=== PATIENT | female | born 1975 | race Caucasian/White ===

== ENCOUNTER 2017-06-10 06:44 | Inpatient (IN) | payer OTHER ==
[2017-06-10] VITALS (15 sets, daily range): BP systolic 124–146; BP diastolic 51–88
[~2017-06-10] VITALS: Ht 162.6 cm; Wt 59.9 kg
[2017-06-10] MEDS ORDERED: SODIUM CHLORIDE 0.9% 1000ML BAG (SEPSIS BOLUS) IV ONE (07:00)
[2017-06-10] MEDS ORDERED: SODIUM CHLORIDE 0.9% 1,000 ML IV ONE ×2 (07:27→07:47)
[2017-06-10] MEDS ORDERED: INSULIN REGULAR (DRIP) 100 UNITS in SODIUM CHLORIDE 0.9% 100 ML IV ONE ×2 (07:30→08:00)
[2017-06-10 07:40] LABS: PARTIAL THROMBOPLASTIN TIME 30.3 sec (23.4-31.0); PROTHROMBIN TIME 10.4 sec (9.4-11.6)
[2017-06-10 07:45] LABS: BG BASE EXCESS -25.9 mmol/L (-2.0-2.0); BG CARBOXYHEMOGLOBIN 0.2 % (0.5-1.5); BG FRACTION INSPIRED OXYGEN 21; BG METHEMOGLOBIN 0.2 % (0.0-1.5); BG OXYHEMOGLOBIN 97.6 % (94.0-97.0); BG PCO2 11.7 mmHg (35.0-45.0); BG PH 7.026 (7.350-7.450); BG PO2 133.1 mmHg (75.0-100.0); BG SAMPLE SITE RIGHT RADIAL; BG TOTAL HEMOGLOBIN 14.4 g/dL (12.0-18.0); BG VENT MODE ROOM AIR
[2017-06-10 07:46] LABS: HCG SCREEN NEGATIVE
[2017-06-10 07:53] LABS: CHLORIDE 92 mEq/L (98-107); TROPONIN I < 0.02 ng/mL (0.00-0.04)
[2017-06-10 07:56] LABS: BETA HYDROXYBUTYRATE 9.6 mMol/L (0.0-0.3)
[2017-06-10] MEDS ORDERED: POTASSIUM CHLORIDE 20MEQ TABLET SR PO ONE (08:00)
[2017-06-10] MEDS ORDERED: KCL 20MEQ/100ML PREMIX 100 ML IV ONE (08:00)
[2017-06-10 08:06] LABS: PHOSPHORUS 5.5 mg/dL (2.5-4.9)
[2017-06-10] MEDS ORDERED: SODIUM CHLORIDE 0.9% 1,000 ML IV SCH ×2 (08:15→16:15)
[2017-06-10 08:29] LABS: HEMATOCRIT. 37.5 % (36.0-48.0); HEMOGLOBIN. 12.2 g/dL (12.0-16.0); MEAN CORPUSCULAR HEMOGLOBIN 27.6 pg (28.0-32.0); MEAN CORPUSCULAR VOLUME 84.8 fL (81.0-99.0); MEAN PLATELET VOLUME 8.5 fl (7.4-10.4); PLATELET 569 x1000/uL (130-400); RED BLOOD CELL COUNT 4.42 mill/uL (4.2-5.4); RED CELL DISTRIBUTION WIDTH 15.7 % (11.6-14.6)
[2017-06-10] MEDS ORDERED: POTASSIUM CHLORIDE 20MEQ/PACKET PO ONE (08:30)
[2017-06-10 08:40] LABS: AMYLASE 459 IU/L (25-115)
[2017-06-10 08:43] LABS: CLARITY URINE CLOUDY (CLEAR); COLOR URINE YELLOW (YELLOW); KETONES URINE 4+ (NEGATIVE); LEUKOCYTE ESTERASE URINE NEGATIVE (NEGATIVE); NITRITE URINE NEGATIVE (NEGATIVE); OCCULT BLOOD URINE 2+ (NEGATIVE); PROTEIN URINE 2+ (NEGATIVE); SPECIFIC GRAVITY URINE 1.029 (1.005-1.030); UROBILINOGEN URINE 0.2 E.U./dL (0.2-1.0)
[2017-06-10] MEDS ORDERED: MIDAZOLAM HCL 2 MG/2 ML VIAL IV ONE (09:15)
[2017-06-10 09:37] LABS: PLATELET ESTIMATE SLIGHTLY INCREASED
[2017-06-10 09:43] LABS: *AMPHETAMINES SCREEN URINE NEGATIVE (NEGATIVE); *BARBITURATES SCREEN URINE NEGATIVE (NEGATIVE); *BENZODIAZEPINES SCREEN URINE NEGATIVE (NEGATIVE); *COCAINE SCREEN URINE NEGATIVE (NEGATIVE); CANNABINOID URINE SCREEN NEGATIVE (NEGATIVE); METHADONE URINE SCREEN NEGATIVE (NEGATIVE); OPIATES URINE SCREEN NEGATIVE (NEGATIVE); PHENCYCLIDINE URINE SCREEN NEGATIVE (NEGATIVE)
[2017-06-10] MEDS ORDERED: CEFTRIAXONE 1 G PREMIX 50 ML IV ONE (10:00)
[2017-06-10] MEDS ORDERED: PIPERACILLIN/TAZ 3.375G PREMIX 50 ML IV ONE (10:15)
[2017-06-10] MEDS ORDERED: DEXTROSE 50% WATER 50ML SYRINGE IV PRN ×4 (11:15→11:30)
[2017-06-10] MEDS ORDERED: BLOOD SUGAR DIAGNOSTIC STRIP TEST SCH (11:15)
[2017-06-10] MEDS ORDERED: INSULIN REGULAR (DRIP) 100 UNITS in SODIUM CHLORIDE 0.9% 99 ML IV SCH (11:23)
[2017-06-10] MEDS: BLOOD SUGAR DIAGNOSTIC STRIP TEST SCH ×12 (11:30→22:30)
[2017-06-10] MEDS ORDERED: VANCOMYCIN 1250MG in DEXTROSE 5% WATER 250ML IV SCH (11:30)
[2017-06-10] MEDS: DEXT 5%/0.45% NACL 1000ML 1,000 ML IV SCH ×4 (11:47→18:06)
[2017-06-10] MEDS: PIPERACILLIN/TAZ 3.375G PREMIX 50 ML IV SCH ×2 (12:45→20:09)
[2017-06-10 13:16] LABS: CHLORIDE 107 mEq/L (98-107)
[2017-06-10 13:17] LABS: AMMONIA 43 uMol/L (<32)
[2017-06-10] MEDS ORDERED: GLIP5TAB12 PO (15:26)
[2017-06-10] MEDS ORDERED: FAMO20TA8 PO (15:26)
[2017-06-10] MEDS ORDERED: LANTUSUD SUBCUT (15:26)
[2017-06-10] MEDS ORDERED: KCL 20MEQ/100ML PREMIX 100 ML IV NR (16:00)
[2017-06-10 17:29] LABS: CLARITY URINE CLEAR (CLEAR); COLOR URINE YELLOW (YELLOW); KETONES URINE 3+ (NEGATIVE); LEUKOCYTE ESTERASE URINE NEGATIVE (NEGATIVE); NITRITE URINE NEGATIVE (NEGATIVE); OCCULT BLOOD URINE 1+ (NEGATIVE); PH URINE 5.5 (4.5-8.0); PROTEIN URINE 1+ (NEGATIVE); UROBILINOGEN URINE 0.2 E.U./dL (0.2-1.0)
[2017-06-10 18:25] LABS: CHLORIDE 107 mEq/L (98-107)
[2017-06-10 18:42] LABS: PHOSPHORUS 0.7 mg/dL (2.5-4.9)
[2017-06-10] MEDS ORDERED: POTASSIUM CHLORIDE 20MEQ TABLET SR PO SCH (20:00)
[2017-06-10] MEDS ORDERED: VANCOMYCIN 750 MG PREMIX 150 ML IV SCH (20:00)
[2017-06-10] MEDS: SODIUM CHLORIDE 0.9% 1,000 ML IV SCH (20:09)
[2017-06-10 20:26] LABS: BG BASE EXCESS -10.1 mmol/L (-2.0-2.0); BG FRACTION INSPIRED OXYGEN 21; BG HCO3 ACT 12.5 mmol/L (22.0-26.0); BG METHEMOGLOBIN 0.3 % (0.0-1.5); BG OXYHEMOGLOBIN 97.7 % (94.0-97.0); BG PCO2 20.5 mmHg (35.0-45.0); BG PH 7.403 (7.350-7.450); BG SAMPLE SITE RIGHT RADIAL; BG TOTAL HEMOGLOBIN 12.3 g/dL (12.0-18.0); BG VENT MODE ROOM AIR
[2017-06-10] MEDS ORDERED: POTASSIUM PHOS,M-BASIC-D-BASIC 20 MMOL in DEXT 5% WATER 243.3333 ML IV SCH (21:00)
[2017-06-10] MEDS ORDERED: VANCOMYCIN 1 G PREMIX 200 ML IV SCH (23:00)
[2017-06-10] MEDS: VANCOMYCIN 1250MG in DEXTROSE 5% WATER 250ML IV SCH (23:45)
[2017-06-11] VITALS (24 sets, daily range): BP systolic 107–143; BP diastolic 52–104
[2017-06-11] MEDS: BLOOD SUGAR DIAGNOSTIC STRIP TEST SCH ×11 (00:27→21:03)
[2017-06-11] MEDS: PIPERACILLIN/TAZ 3.375G PREMIX 50 ML IV SCH ×3 (04:47→21:25)
[2017-06-11] MEDS: SODIUM CHLORIDE 0.9% 1,000 ML IV SCH ×2 (04:48→08:43)
[2017-06-11 05:51] LABS: BASOPHILS % 0.2 % (0.0-2.0); EOSINOPHILS % 0.2 % (0.0-5.0); HEMATOCRIT. 33.2 % (36.0-48.0); HEMOGLOBIN. 11.4 g/dL (12.0-16.0); LYMPHOCYTES % 7.5 % (20.0-50.0); MEAN CORPUSCULAR HEMOGLOBIN 27.4 pg (28.0-32.0); MEAN CORPUSCULAR VOLUME 80.1 fL (81.0-99.0); MEAN PLATELET VOLUME 7.9 fl (7.4-10.4); MONOCYTES % 7.4 % (2.0-8.0); NEUTROPHILS % 84.7 % (40.0-76.0); PLATELET 480 x1000/uL (130-400); RED BLOOD CELL COUNT 4.14 mill/uL (4.2-5.4); RED CELL DISTRIBUTION WIDTH 14.9 % (11.6-14.6)
[2017-06-11 06:10] LABS: CHLORIDE 107 mEq/L (98-107)
[2017-06-11] MEDS: DEXT 5%/0.45% NACL 1000ML 1,000 ML IV SCH (06:43)
[2017-06-11] MEDS ORDERED: SODIUM CHLORIDE 0.9% 1,000 ML IV SCH (08:30)
[2017-06-11] MEDS ORDERED: DEXTROSE 50% WATER 50ML SYRINGE IV PRN (08:30)
[2017-06-11 08:44] LABS: PHOSPHORUS 1.6 mg/dL (2.5-4.9)
[2017-06-11] MEDS ORDERED: POTASSIUM-SODIUM PHOSPHATE POWDER PACKET PO SCH (09:00)
[2017-06-11] MEDS: POTASSIUM CHLORIDE 20MEQ TABLET SR PO SCH ×6 (09:05→18:33)
[2017-06-11] MEDS: AMLODIPINE 10MG TABLET PO SCH (09:37)
[2017-06-11] MEDS: INSULIN GLARGINE UD 100 UNITS/ML SYR SUBCUT SCH ×2 (09:38→21:27)
[2017-06-11] MEDS: INSULIN LISPRO 100 UNITS/ML SUBCUT SCH ×3 (12:47→21:26)
[2017-06-11] MEDS: VANCOMYCIN 1250MG in DEXTROSE 5% WATER 250ML IV SCH (14:05)
[2017-06-11 16:17] LABS: CHLORIDE 100 mEq/L (98-107)
[2017-06-11] MEDS ORDERED: POTASSIUM PHOS,M-BASIC-D-BASIC 20 MMOL in DEXT 5% WATER 243.3333 ML IV NR (18:30)
[2017-06-12] VITALS (24 sets, daily range): BP systolic 116–144; BP diastolic 43–93
[2017-06-12] MEDS: VANCOMYCIN 1250MG in DEXTROSE 5% WATER 250ML IV SCH ×2 (01:08→13:04)
[2017-06-12] MEDS: PIPERACILLIN/TAZ 3.375G PREMIX 50 ML IV SCH ×3 (05:22→20:42)
[2017-06-12 05:33] LABS: BASOPHILS % 0.2 % (0.0-2.0); EOSINOPHILS % 0.2 % (0.0-5.0); HEMATOCRIT. 34.1 % (36.0-48.0); HEMOGLOBIN. 11.8 g/dL (12.0-16.0); LYMPHOCYTES % 10.4 % (20.0-50.0); MEAN CORPUSCULAR HEMOGLOBIN 27.5 pg (28.0-32.0); MEAN CORPUSCULAR VOLUME 79.2 fL (81.0-99.0); MEAN PLATELET VOLUME 8.2 fl (7.4-10.4); MONOCYTES % 10.3 % (2.0-8.0); NEUTROPHILS % 78.9 % (40.0-76.0); PLATELET 526 x1000/uL (130-400); RED BLOOD CELL COUNT 4.31 mill/uL (4.2-5.4)
[2017-06-12 06:08] LABS: CHLORIDE 102 mEq/L (98-107)
[2017-06-12 06:13] LABS: PHOSPHORUS 1.6 mg/dL (2.5-4.9)
[2017-06-12] MEDS: BLOOD SUGAR DIAGNOSTIC STRIP TEST SCH ×4 (07:50→21:29)
[2017-06-12] MEDS: INSULIN LISPRO 100 UNITS/ML SUBCUT SCH ×4 (09:11→21:30)
[2017-06-12] MEDS: PANTOPRAZOLE SODIUM 40 MG/VIAL IV SCH (09:12)
[2017-06-12] MEDS: AMLODIPINE 10MG TABLET PO SCH (09:12)
[2017-06-12] MEDS: POTASSIUM CHLORIDE 20MEQ TABLET SR PO NR ×2 (09:15→10:19)
[2017-06-12] MEDS: ONDANSETRON HCL 4MG/2ML VIAL IV PRN ×2 (09:15→23:33)
[2017-06-12] MEDS ORDERED: POTASSIUM PHOS,M-BASIC-D-BASIC 20 MMOL in DEXT 5% WATER 243.3333 ML IV NR (10:30)
[2017-06-12] MEDS: INSULIN GLARGINE UD 100 UNITS/ML SYR SUBCUT SCH ×2 (10:39→22:51)
[2017-06-12 11:10] LABS: CHLORIDE 102 mEq/L (98-107); VANCOMYCIN TROUGH 21.8 ug/mL (5.0-10.0)
[2017-06-12] MEDS ORDERED: MAGNESIUM 1 G PREMIX 100 ML IV NR (11:45)
[2017-06-12] MEDS ORDERED: POTASSIUM CHLORIDE INJ 40 MEQ in SODIUM CHLORIDE 0.9% 250 ML IV NR (14:30)
[2017-06-12] MEDS ORDERED: POTASSIUM CHLORIDE INJ 40 MEQ in DEXT 5% WATER 250 ML IV ONE (15:00)
[2017-06-12] MEDS ORDERED: POTASSIUM CHLORIDE INJ 40 MEQ in DEXT 5% WATER 250 ML IV NR (18:00)
[2017-06-13] VITALS (9 sets, daily range): BP systolic 109–125; BP diastolic 62–85
[2017-06-13] MEDS: VANCOMYCIN 1250MG in DEXTROSE 5% WATER 250ML IV SCH ×2 (00:41→12:18)
[2017-06-13] MEDS: PIPERACILLIN/TAZ 3.375G PREMIX 50 ML IV SCH ×3 (03:30→21:47)
[2017-06-13] MEDS: BLOOD SUGAR DIAGNOSTIC STRIP TEST SCH ×4 (06:09→21:18)
[2017-06-13 06:59] LABS: BASOPHILS % 0.3 % (0.0-2.0); EOSINOPHILS % 0.2 % (0.0-5.0); HEMATOCRIT. 32.3 % (36.0-48.0); HEMOGLOBIN. 11.1 g/dL (12.0-16.0); LYMPHOCYTES % 7.1 % (20.0-50.0); MEAN CORPUSCULAR HEMOGLOBIN 27.7 pg (28.0-32.0); MEAN CORPUSCULAR VOLUME 80.8 fL (81.0-99.0); MEAN PLATELET VOLUME 8.1 fl (7.4-10.4); NEUTROPHILS % 81.4 % (40.0-76.0); PLATELET 482 x1000/uL (130-400); RED CELL DISTRIBUTION WIDTH 14.9 % (11.6-14.6)
[2017-06-13] MEDS: INSULIN LISPRO 100 UNITS/ML SUBCUT SCH ×4 (07:40→21:18)
[2017-06-13 07:45] LABS: PHOSPHORUS 2.5 mg/dL (2.5-4.9)
[2017-06-13] MEDS: PANTOPRAZOLE SODIUM 40 MG/VIAL IV SCH (08:06)
[2017-06-13] MEDS: AMLODIPINE 10MG TABLET PO SCH (08:06)
[2017-06-13] MEDS: POTASSIUM CHLORIDE 20MEQ TABLET SR PO SCH (09:15)
[2017-06-13] MEDS: INSULIN GLARGINE UD 100 UNITS/ML SYR SUBCUT SCH ×2 (11:28→21:18)
[2017-06-13] MEDS: ONDANSETRON HCL 4MG/2ML VIAL IV PRN (14:54)
[2017-06-13] MEDS ORDERED: KCL 20MEQ/100ML PREMIX 100 ML IV NR (20:00)
[2017-06-14] VITALS (12 sets, daily range): BP systolic 90–128; BP diastolic 53–91
[2017-06-14] MEDS ORDERED: VANCOMYCIN 1 G PREMIX 200 ML IV SCH
[2017-06-14] MEDS: PIPERACILLIN/TAZ 3.375G PREMIX 50 ML IV SCH ×3 (03:53→19:59)
[2017-06-14] MEDS: BLOOD SUGAR DIAGNOSTIC STRIP TEST SCH ×4 (06:21→20:13)
[2017-06-14] MEDS: INSULIN LISPRO 100 UNITS/ML SUBCUT SCH ×4 (08:06→20:13)
[2017-06-14] MEDS: AMLODIPINE 10MG TABLET PO SCH (08:06)
[2017-06-14] MEDS: FAMOTIDINE 20MG TABLET PO SCH (08:06)
[2017-06-14] MEDS: POTASSIUM CHLORIDE 20MEQ TABLET SR PO SCH (08:24)
[2017-06-14 10:13] LABS: BASOPHILS % 0.3 % (0.0-2.0); EOSINOPHILS % 0.2 % (0.0-5.0); HEMATOCRIT. 35.2 % (36.0-48.0); HEMOGLOBIN. 11.9 g/dL (12.0-16.0); MEAN CORPUSCULAR HEMOGLOBIN 27.6 pg (28.0-32.0); MEAN CORPUSCULAR VOLUME 81.6 fL (81.0-99.0); MEAN PLATELET VOLUME 8.1 fl (7.4-10.4); MONOCYTES % 8.1 % (2.0-8.0); NEUTROPHILS % 82.4 % (40.0-76.0); PLATELET 573 x1000/uL (130-400); RED BLOOD CELL COUNT 4.32 mill/uL (4.2-5.4); RED CELL DISTRIBUTION WIDTH 15.5 % (11.6-14.6)
[2017-06-14] MEDS: INSULIN GLARGINE UD 100 UNITS/ML SYR SUBCUT SCH ×2 (10:41→22:42)
[2017-06-14] MEDS: SODIUM CHLORIDE 0.9% 1,000 ML IV SCH ×2 (12:27→18:55)
[2017-06-14] MEDS ORDERED: POTASSIUM CHLORIDE INJ 40 MEQ in DEXT 5% WATER 500 ML IV SCH (13:00)
[2017-06-14] MEDS: ONDANSETRON HCL 4MG/2ML VIAL IV PRN (18:15)
[2017-06-15] VITALS (12 sets, daily range): BP systolic 105–129; BP diastolic 56–93
[2017-06-15] MEDS: SODIUM CHLORIDE 0.9% 1,000 ML IV SCH ×4 (01:18→21:24)
[2017-06-15] MEDS: PIPERACILLIN/TAZ 3.375G PREMIX 50 ML IV SCH ×3 (04:11→21:21)
[2017-06-15] MEDS: BLOOD SUGAR DIAGNOSTIC STRIP TEST SCH ×4 (06:59→21:23)
[2017-06-15] MEDS: INSULIN LISPRO 100 UNITS/ML SUBCUT SCH ×4 (07:00→21:00)
[2017-06-15] MEDS: FAMOTIDINE 20MG TABLET PO SCH (08:33)
[2017-06-15] MEDS: POTASSIUM CHLORIDE 20MEQ TABLET SR PO SCH (08:33)
[2017-06-15] MEDS: ONDANSETRON HCL 4MG/2ML VIAL IV PRN (08:34)
[2017-06-15] MEDS: AMLODIPINE 10MG TABLET PO SCH (08:35)
[2017-06-15] MEDS: INSULIN GLARGINE UD 100 UNITS/ML SYR SUBCUT SCH ×2 (11:07→21:27)
[2017-06-16] VITALS (13 sets, daily range): BP systolic 109–130; BP diastolic 49–82
[2017-06-16] MEDS: SODIUM CHLORIDE 0.9% 1,000 ML IV SCH ×2 (04:09→11:37)
[2017-06-16] MEDS: PIPERACILLIN/TAZ 3.375G PREMIX 50 ML IV SCH ×2 (04:09→11:37)
[2017-06-16] MEDS: BLOOD SUGAR DIAGNOSTIC STRIP TEST SCH ×3 (06:59→16:50)
[2017-06-16] MEDS: INSULIN LISPRO 100 UNITS/ML SUBCUT SCH ×3 (06:59→18:00)
[2017-06-16 07:10] LABS: HEMATOCRIT. 28.8 % (36.0-48.0); HEMOGLOBIN. 9.8 g/dL (12.0-16.0); MEAN CORPUSCULAR HEMOGLOBIN 28.3 pg (28.0-32.0); MEAN CORPUSCULAR VOLUME 83.2 fL (81.0-99.0); PLATELET 535 x1000/uL (130-400); RED BLOOD CELL COUNT 3.46 mill/uL (4.2-5.4); RED CELL DISTRIBUTION WIDTH 15.6 % (11.6-14.6)
[2017-06-16] MEDS: POTASSIUM CHLORIDE 20MEQ TABLET SR PO SCH (08:15)
[2017-06-16] MEDS: FAMOTIDINE 20MG TABLET PO SCH (08:15)
[2017-06-16] MEDS: AMLODIPINE 10MG TABLET PO SCH (08:15)
[2017-06-16] MEDS: INSULIN GLARGINE UD 100 UNITS/ML SYR SUBCUT SCH (09:46)
[2017-06-16 15:53] LABS: PLATELET ESTIMATE INCREASED
== END 2017-06-16 18:45 | disposition home health service (06) | DRG 721 ==
LOC: ER 06:44 → ENRESERV 07:28 → CANRESERV 07:28 → EDBEDREQ 07:31 → EDBEDREQSVC 07:31 → CVICU 07:49 → EDBEDREQ 07:52 → EDBEDREQTM 07:52 → ENRESERV 08:29 → 3WST 06-12 23:12
PROVIDERS: ADMIT Internal Medicine Nephrology; ATTEND Internal Medicine Nephrology
PROC: 05H933Z Insertion of Infusion Device into Right Brachial Vein, Percutaneous Approach (ICD-10-PCS; principal; 2017-06-10)
PROC: B54MZZA Ultrasonography of Right Upper Extremity Veins, Guidance (ICD-10-PCS; 2017-06-10)
DX: T81.4XXA Infection following a procedure, initial encounter (principal); G92 Toxic encephalopathy; A41.9 Sepsis, unspecified organism; E11.10 Type 2 diabetes mellitus with ketoacidosis without coma; N17.9 Acute kidney failure, unspecified; E72.20 Disorder of urea cycle metabolism, unspecified; C78.7 Secondary malignant neoplasm of liver and intrahepatic bile duct; E87.6 Hypokalemia; E83.39 Other disorders of phosphorus metabolism; K52.9 Noninfective gastroenteritis and colitis, unspecified; F32.9 Major depressive disorder, single episode, unspecified; E87.1 Hypo-osmolality and hyponatremia; L02.91 Cutaneous abscess, unspecified; L02.211 Cutaneous abscess of abdominal wall; N39.0 Urinary tract infection, site not specified; Z90.49 Acquired absence of other specified parts of digestive tract; Z98.891 History of uterine scar from previous surgery
CPT/HCPCS: 36415; 36569; 36600; 70450; 71045; 74176; 76700; 76937; 80048; 80053; 80202; 80305; 81001; 82010; 82140; 82150; 82375; 82805; 82962; 83605; 83690; 83735; 83880; 83930; 83935; 84100; 84484; 84703; 85025; 85610; 85730; 87040; 87086; 93005; 96361; 96374; 99291; A6261; C1725; C9113; J0696; J1815; J2405; J2543; J3370; J3475; J3480; J3490; J7030; J7050; J7060; A4315

== ENCOUNTER 2018-02-24 18:39 | Emergency (ER) | payer MEDICAID, OTHER ==
[~2018-02-24] VITALS: Ht 157.5 cm; Wt 48.0 kg
[~2018-02-24 18:39] MED LIST: FAMO20TA8 PO; GLIP5TAB12 PO; LANTUSUD SUBCUT
[2018-02-24] MEDS ORDERED: ONDANSETRON HCL 4MG/2ML INJ IV STA (23:30)
[2018-02-24] MEDS ORDERED: SODIUM CHLORIDE 0.9% 1,000 ML IV ONE (23:30)
[2018-02-24] MEDS ORDERED: MORPHINE SULFATE 4 MG/ML CPJ (NOT FOR IM USE) IV STA (23:30)
[2018-02-25 00:53] LABS: CHLORIDE 106 mEq/L (98-107)
[2018-02-25 00:58] LABS: BASOPHILS % 0.6 % (0.0-2.0); EOSINOPHILS % 0.6 % (0.0-5.0); HEMATOCRIT. 35.9 % (36.0-48.0); LYMPHOCYTES % 17.3 % (20.0-50.0); MEAN CORPUSCULAR HEMOGLOBIN 27.9 pg (28.0-32.0); MEAN CORPUSCULAR VOLUME 83.4 fL (81.0-99.0); MEAN PLATELET VOLUME 8.8 fl (7.4-10.4); MONOCYTES % 8.9 % (2.0-8.0); NEUTROPHILS % 72.6 % (40.0-76.0); PLATELET 360 x1000/uL (130-400); RED BLOOD CELL COUNT 4.31 mill/uL (4.2-5.4); RED CELL DISTRIBUTION WIDTH 14.3 % (11.6-14.6)
[2018-02-25] MEDS ORDERED: IOHEXOL-300 100 ML BOTTLE ONE (02:50)
[2018-02-25 06:23] VITALS: BP 100/61
== END 2018-02-25 06:23 | disposition home or self-care (01) ==
LOC: ER 18:39
DX: C22.9 Malignant neoplasm of liver, not specified as primary or secondary (principal); C80.0 Disseminated malignant neoplasm, unspecified; R10.9 Unspecified abdominal pain; E11.9 Type 2 diabetes mellitus without complications; Z90.49 Acquired absence of other specified parts of digestive tract; Z98.890 Other specified postprocedural states; Z98.51 Tubal ligation status; Z79.4 Long term (current) use of insulin; Z79.899 Other long term (current) drug therapy
CPT/HCPCS: 36415; 71045; 74177; 80053; 81025; 83605; 83690; 85025; 96374; 96375; 99285; J2270; J2405; J7030; Q9967; 96361